=== PATIENT | female | born 1955 | race Caucasian/White ===

== ENCOUNTER 2024-05-10 06:09 | Day surgery (SDC) | payer MEDICARE, OTHER, SELFPAY ==
[2024-05-10] VITALS (8 sets, daily range): BP systolic 124–163; BP diastolic 56–101; BMI 40.0
[2024-05-10] MEDS: LOW STRENGTH ASPIRIN 324 MG PO (06:59)
[2024-05-10 07:02] LABS: Hemoglobin 11.5 g/dL (12.0-16.0); Mean Corp Hgb Conc. 31.9 g/dL (33.0-37.0); Mean Corpuscular Hgb 26.9 pg (27.0-31.0); Mean Corpuscular Volume 84.3 fL (81.0-99.0); Mean Platelet Volume 9.2 fL (7.4-10.4); Platelet Count 344 10^3/uL (130-400); Red Blood Cell Count 4.27 10^6/uL (4.20-5.40); Red Cell Dist. Width 15.4 % (11.5-14.5); White Blood Cell Count 9.2 10^3/uL (4.8-10.8)
[2024-05-10 07:09] LABS: Glucose - Point of Care 110 mg/dl (70-99)
[2024-05-10] MEDS: NSS 317 ML IV (07:13)
[2024-05-10 07:15] LABS: Blood Urea Nitrogen 22 mg/dl (7-17); Calcium 8.9 mg/dl (8.4-10.2); Carbon Dioxide 29 mmol/L (22-30); Chloride 105 mmol/L (98-107); Estimated Creatinine Clearance 71 ml/min; Glucose 129 mg/dl (70-99); Potassium 3.2 mmol/L (3.5-5.1); Sodium 140 mmol/L (135-145); eGFR > 60.00
[2024-05-10] MEDS: NSS 1000 IV (08:40)
--- NOTE | 2024-05-10 08:45 | ITS.CL.CATH ---
[employer] - Catheterization
Cardiac Catheterization
Procedure Report:
CARDIAC CATHETERIZATION REPORT
Date of Procedure: 05/10/2024
Referring: Odilon Randle MD
Indication: Progressive exertional dyspnea
HEMODYNAMIC DATA
AO: 164/82
LV: 164/21
LEFT VENTRICULOGRAPHY: Normal left ventricular wall motion with EF 64%
CORONARY ANGIOGRAPHY
Dominance: Right
Left Main: Normal
LAD: Normal
Circumflex: Normal
RCA: Normal
Closure Device: None-the procedure was performed via the right radial artery. The Vicente's test was normal prior to the procedure.
Radiation (mGy): 320
DAP (cm2.Gy): 30.3
Fluoroscopy time: 6.2 minutes
CONCLUSIONS
1: Systemic hypertension
2: Elevated LVEDP
3. Normal left ventricular function with EF 64%
4. Normal coronary arteries
5. Exertional dyspnea likely due to diastolic dysfunction related to hypertension, diabetes and BMI 40
Copy to: Odilon Randle MD, Valdo Mayo MD
Kin Pruett MD, [facility], [place]
[2024-05-10] MEDS: KCL 40 MEQ PO (09:16)
== END 2024-05-10 11:25 | disposition home or self-care (01) ==
LOC: CATH 06:09
PROVIDERS: ATTENDING PHYSICIAN Internal Medicine Cardiovascular Disease; FAMILY PHYSICIAN Internal Medicine; OTHER PHYSICIAN Internal Medicine Cardiovascular Disease
DX: R06.09 Other forms of dyspnea (principal); I10 Essential (primary) hypertension; E11.9 Type 2 diabetes mellitus without complications; Z68.41 Body mass index [BMI] 40.0-44.9, adult
CPT/HCPCS: 80048; 82962; 85027; 93458; C1769; C1894; Q9967